=== PATIENT | female | born 1985 | race Caucasian/White ===

== ENCOUNTER 2017-04-29 15:17 | Emergency (ER) | payer OTHER ==
[~2017-04-29] VITALS: Wt 80.0 kg
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
[2017-04-29] MEDS ORDERED: HYDROCODONE/APAP (5/325) TAB PO ONE (16:00)
--- NOTE | 2017-04-29 16:40 | RADRPT ---
PROCEDURE: XR Right Shoulder CLINICAL INDICATION: Trauma TECHNIQUE: An AP and 2 Y views were submitted. COMPARISON: None FINDINGS: Osseous structures: There is a fracture through the distal third of the right clavicular shaft of th e distal fragment displaced inferiorly by 2/3 the bone width. Joint spaces: The glenohumeral joint appears unremarkable. The AC joint appears slightly widened. Soft tissues: appear unremarkable. IMPRESSION: 1. Fracture involving the distal third of the right clavicle. 2. The right AC joint appears slightly widened raising the possibility of a second-degree AC joint separation. Physician Otilio Date Time Electronically viewed and signed by Physician Otilio on 04/29/2017 16:40 /
[2017-04-29] MEDS ORDERED: IBUP800T25 PO (16:46)
[2017-04-29] MEDS ORDERED: HYDR-906 PO (16:46)
== END 2017-04-29 17:05 | disposition home or self-care (01) ==
LOC: FTE 15:17
DX: S42.031A Displaced fracture of lateral end of right clavicle, initial encounter for closed fracture (principal); S43.101A Unspecified dislocation of right acromioclavicular joint, initial encounter; S90.811A Abrasion, right foot, initial encounter; S90.812A Abrasion, left foot, initial encounter; S00.81XA Abrasion of other part of head, initial encounter; V18.4XXA Pedal cycle driver injured in noncollision transport accident in traffic accident, initial encounter
CPT/HCPCS: 73030; Z7502; Z7610